=== PATIENT | female | born 1990 | race Two or more races ===

== ENCOUNTER 2017-09-06 14:35 | Emergency (ER) | payer MEDICAID ==
[~2017-09-06] VITALS: Ht 170.2 cm; Wt 57.0 kg
[~2017-09-06 14:35] MED LIST: NITR100C56 PO
[2017-09-06] MEDS ORDERED: PLEASE ENTER HEIGHT AND WEIGHT MC SCH (14:55)
[2017-09-06] MEDS ORDERED: PHENAZOPYRIDINE 200 MG TABLET PO ONE (15:00)
[2017-09-06] MEDS ORDERED: PHENAZOPYRIDINE 200 MG TABLET ONE (15:01)
[2017-09-06 15:12] LABS: BASOPHILS # (AUTO) 0.04 x10^3/uL (0-0.1); BASOPHILS % (AUTO) 0 % (0-1); EOSINOPHILS # (AUTO) 0.05 x10^3/uL (0-0.4); EOSINOPHILS % (AUTO) 1 % (1-7); LYMPHOCYTES # (AUTO) 1.87 x10^3/uL (1-3.4); LYMPHOCYTES % (AUTO) 20 % (22-44); MD NO; MEAN CORPUSCULAR HEMOGLOBIN 29.8 pg (27.0-34.8); MEAN CORPUSCULAR HGB CONC 33.4 g/dL (32.4-35.8); MEAN CORPUSCULAR VOLUME 89.1 fL (80-100); MEAN PLATELET VOLUME 7.4 fL (7.4-10.4); MONOCYTES # (AUTO) 0.51 x10^3/uL (0.2-0.8); MONOCYTES % (AUTO) 5 % (2-9); NEUTROPHILS # (AUTO) 6.98 x10^3/uL (1.8-6.8); NEUTROPHILS % (AUTO) 74 % (42-75); PLATELET COUNT 247 x10^3/uL (130-400); RED CELL DISTRIBUTION WIDTH 13.6 % (9.6-15.2)
[2017-09-06 15:21] LABS: MICROSCOPIC INDICATED
[2017-09-06 15:22] LABS: CULTURE INDICATED? YES
[2017-09-06 15:24] LABS: ALBUMIN 4.2 g/dL (3.4-5.0); ANION GAP 8 mmol/L (5-15); CHLORIDE 108 mmol/L (98-107); CREATININE 1.02 mg/dL (0.55-1.02)
[2017-09-06 18:07] VITALS: BP 107/56
== END 2017-09-06 18:10 | disposition home or self-care (01) ==
LOC: ED 18:05
DX: N30.01 Acute cystitis with hematuria (principal)
CPT/HCPCS: 36415; 74176; 80048; 81001; 82040; 84703; 85025; 87077; 87086; 87186; 99285

== ENCOUNTER 2017-09-07 11:27 | Emergency (ER) | payer MEDICAID ==
[~2017-09-07] VITALS: Ht 170.2 cm; Wt 59.8 kg
[2017-09-07 11:29] VITALS: BP 108/67
[2017-09-07] MEDS ORDERED: BACITRACIN ZINC OINT 500U/GM, 0.9 GM ONE ×2 (13:07→13:39)
== END 2017-09-07 13:55 | disposition home or self-care (01) ==
LOC: ED 12:33
DX: S00.81XA Abrasion of other part of head, initial encounter (principal); I10 Essential (primary) hypertension; F17.200 Nicotine dependence, unspecified, uncomplicated; Z59.0 Homelessness; W22.09XA Striking against other stationary object, initial encounter; Y93.89 Activity, other specified; Y92.488 Other paved roadways as the place of occurrence of the external cause; Y99.8 Other external cause status
CPT/HCPCS: 70450; 99284

== ENCOUNTER 2017-10-10 05:14 | Emergency (ER) | payer MEDICAID ==
[~2017-10-10] VITALS: Ht 170.2 cm; Wt 61.7 kg
[2017-10-10] MEDS ORDERED: KETOROLAC 30 MG/1 ML IM ONE (06:00)
[2017-10-10] MEDS ORDERED: KETOROLAC 30 MG/1 ML ONE (06:11)
[2017-10-10 06:45] VITALS: BP 127/76
== END 2017-10-10 06:46 | disposition home or self-care (01) ==
LOC: ED 06:04
DX: S29.012A Strain of muscle and tendon of back wall of thorax, initial encounter (principal); G89.11 Acute pain due to trauma; Y04.8XXA Assault by other bodily force, initial encounter; Y93.89 Activity, other specified; Y92.89 Other specified places as the place of occurrence of the external cause; Y99.8 Other external cause status
CPT/HCPCS: 72072; 96372; 99284; J1885

== ENCOUNTER 2017-10-10 20:49 | Emergency (ER) | payer MEDICAID ==
[~2017-10-10] VITALS: Ht 170.2 cm; Wt 62.3 kg
[2017-10-10 20:55] VITALS: BP 105/67
[2017-10-10 21:39] LABS: AMPHETAMINE SCREEN, URINE Positive (Negative); BARBITURATE SCREEN, URINE Negative (Negative); COCAINE SCREEN, URINE Negative (Negative); METHADONE SCREEN, URINE Negative (Negative); OPIATE SCREEN, URINE Negative (Negative)
[2017-10-10 21:40] LABS: BENZODIAZEPINE SCREEN, URINE Negative (Negative); CANNABINOID SCREEN, URINE Negative (Negative)
== END 2017-10-10 21:44 | disposition home or self-care (01) ==
LOC: ED 21:36
DX: F33.9 Major depressive disorder, recurrent, unspecified (principal); R45.851 Suicidal ideations; F15.10 Other stimulant abuse, uncomplicated; I10 Essential (primary) hypertension; Z79.899 Other long term (current) drug therapy
CPT/HCPCS: 80307; 99284

== ENCOUNTER 2017-11-23 20:20 | Emergency (ER) | payer MEDICAID ==
[~2017-11-23] VITALS: Ht 170.2 cm; Wt 58.7 kg
[2017-11-23] MEDS ORDERED: LIDOCAINE 1%-EPI 1:100K, 30ML ONE (20:57)
[2017-11-23] MEDS ORDERED: LIDOCAINE 1%-EPI 1:100K, 20ML SQ ONE (21:00)
[2017-11-23] MEDS ORDERED: ACETAMINOPHEN 500 MG TABLET ONE (21:21)
[2017-11-23] MEDS ORDERED: ACETAMINOPHEN 500 MG TABLET PO ONE (21:30)
[2017-11-23 22:13] VITALS: BP 118/70
== END 2017-11-23 22:54 | disposition home or self-care (01) ==
LOC: ED 22:21
DX: S01.511A Laceration without foreign body of lip, initial encounter (principal); F32.9 Major depressive disorder, single episode, unspecified; I10 Essential (primary) hypertension; F17.210 Nicotine dependence, cigarettes, uncomplicated; Y04.8XXA Assault by other bodily force, initial encounter; Y93.89 Activity, other specified; Y92.89 Other specified places as the place of occurrence of the external cause; Y99.8 Other external cause status
CPT/HCPCS: 12011; 99283

== ENCOUNTER 2017-12-05 19:56 | Emergency (ER) | payer MEDICAID ==
[~2017-12-05] VITALS: Ht 170.2 cm; Wt 58.0 kg
[2017-12-05 20:15] VITALS: BP 153/91
[2017-12-05 20:55] LABS: MICROSCOPIC INDICATED
[2017-12-05 21:06] LABS: CULTURE INDICATED? NO
== END 2017-12-05 22:00 | disposition home or self-care (01) ==
LOC: ED 21:30
DX: N30.00 Acute cystitis without hematuria (principal); K08.89 Other specified disorders of teeth and supporting structures; I10 Essential (primary) hypertension
CPT/HCPCS: 81001; 81025; 99284

== ENCOUNTER 2017-12-28 12:24 | Emergency (ER) | payer MEDICAID ==
[~2017-12-28] VITALS: Ht 170.2 cm; Wt 58.6 kg
[2017-12-28 12:26] VITALS: BP 137/88
== END 2017-12-28 13:04 | disposition home or self-care (01) ==
LOC: ED 12:55
DX: H10.023 Other mucopurulent conjunctivitis, bilateral (principal); F17.200 Nicotine dependence, unspecified, uncomplicated
CPT/HCPCS: 99283

== ENCOUNTER 2018-03-09 08:09 | Emergency (ER) | payer MEDICAID ==
[~2018-03-09] VITALS: Ht 170.2 cm; Wt 64.7 kg
--- NOTE | 2018-03-09 09:36 | NUR ---
CONTACT WITH PT, 27 YR OLD FEMALE HERE WITH C/O, "MY BACK IS HURTING REALLY BAD AND I CANT GET INTO MY DOCTOR TODAY" HAS BEEN FOR 3 DAYS. "I HAVE SCOLOSIS REAL BAD AND I GE THESE FLARE UPS" -11/07
[2018-03-09] MEDS ORDERED: BUPR-86 PO (09:39)
[2018-03-09] MEDS ORDERED: KETOROLAC 30 MG/1 ML ONE (09:43)
[2018-03-09] MEDS ORDERED: OXYcodone/APAP 5/325MG TABLET ONE (09:44)
--- NOTE | 2018-03-09 09:48 | NUR ---
PT DECLINED SOMA, "I DONT WANT TO FEEL LOOPY, I HAVE A VISIT WITH MY KIDS TODAY" PT AWARE OF SHOULD NOT DRIVE AFTER TAKING PERCOCET. PT MEDICATED WITH PERCOCET AND TORADOL
[2018-03-09 10:00] VITALS: BP 107/61
[2018-03-09] MEDS ORDERED: CARISOPRODOL 350 MG TABLET PO ONE (10:00)
[2018-03-09] MEDS ORDERED: OXYcodone/APAP 5/325MG TABLET PO ONE (10:00)
[2018-03-09] MEDS ORDERED: KETOROLAC 30 MG/1 ML IM ONE (10:00)
== END 2018-03-09 10:02 | disposition home or self-care (01) ==
LOC: ED 09:56
DX: S29.012A Strain of muscle and tendon of back wall of thorax, initial encounter (principal); G89.29 Other chronic pain; F17.200 Nicotine dependence, unspecified, uncomplicated; X58.XXXA Exposure to other specified factors, initial encounter; Y93.89 Activity, other specified; Y92.89 Other specified places as the place of occurrence of the external cause; Y99.8 Other external cause status
CPT/HCPCS: 96372; 99283; J1885

== ENCOUNTER 2018-06-14 05:54 | Emergency (ER) | payer MEDICAID ==
[~2018-06-14] VITALS: Ht 170.2 cm; Wt 68.0 kg
[~2018-06-14 05:54] MED LIST changes: +BUPR-86 PO
[2018-06-14 05:58] VITALS: BP 122/82
--- NOTE | 2018-06-14 06:10 | NUR ---
PA AT BEDSIDE. PT STATES "SHE HAS SCOLIOSIS AND IS TRYING TO GET INTO A PAIN MANAGEMENT CENTER BUT IS WAITING FOR PHONE CALL BACK. WONDERING IF SHE CAN GET SOMETHING FOR PAIN BECAUSE [employer] IS NOT WORKING."
== END 2018-06-14 06:53 | disposition home or self-care (01) ==
LOC: ED 06:52
DX: M54.5 Low back pain (principal); L03.113 Cellulitis of right upper limb; I10 Essential (primary) hypertension; Z72.9 Problem related to lifestyle, unspecified; F32.9 Major depressive disorder, single episode, unspecified
CPT/HCPCS: 99283